=== PATIENT | female | born 1940 | race Caucasian/White ===

== ENCOUNTER → 2016-11-16 | Outpatient (CLI) | payer OTHER ==
[2015-06-26 20:40] VITALS: BP 147/115
[~2016-11-16] MED LIST: HYDR25TA9 PO; INSU100V13 SQ; LEVO100T5 PO; LISI40TA PO; MAGN400T22 PO; METF10002 PO; METO25TA4 PO; OMEP20CA9 PO; SIMV20TA3 PO; TRAM50TA PO; VERA240C4 PO
--- NOTE | 2016-11-16 13:00 | RAD ---
DATE: 11/16/2016 EXAM: DIGITAL SCREEN BILAT W/CAD HISTORY: Routine screening COMPARISON: 10/10/2015 This study was interpreted with the benefit of Computerized Aided Detection (CAD). The breast parenchyma is primarily fatty replaced. Breast parenchyma level density A. FINDINGS: No new or enlarging breast densities are seen. Benign type calcifications are present. No suspicious microcalcifications have developed. IMPRESSION: Stable mammograms without evidence of malignancy. BI-RADS CATEGORY: 2 BENIGN FINDING(S) RECOMMENDED FOLLOW-UP: 12M 12 MONTH FOLLOW-UP PQRS compliance statement: Patient information was entered into a reminder system with a target due date for the next mammogram. Mammography is a sensitive method for finding small breast cancers, but it does not detect them all and is not a substitute for careful clinical examination. A negative mammogram does not negate a clinically suspicious finding and should not result in delay in biopsying a clinically suspicious abnormality. "Our facility is accredited by the [employer] Mammography Program."
== END | disposition home or self-care (01) ==
LOC: MAMMO 11:02
PROVIDERS: ATTEND Nurse Practitioner Family
DX: Z12.31 Encounter for screening mammogram for malignant neoplasm of breast (principal)
CPT/HCPCS: G0202; 77067

== ENCOUNTER → 2016-11-20 | Outpatient (CLI) | payer OTHER ==
[2015-06-26 20:40] VITALS: BP 147/115
[2016-11-20 11:47] LABS: HEMATOCRIT 40.1 % (36.0-47.0); HEMOGLOBIN 13.1 g/dL (12.0-15.5)
[2016-11-20 11:53] LABS: ALBUMIN 3.6 g/dL (3.4-5.0); CREATININE 1.2 mg/dL (0.6-1.0); GFR 43.8; MAGNESIUM 1.7 mg/dL (1.8-2.4); POTASSIUM 4.6 mmol/L (3.5-5.1)
[2016-11-20 11:59] LABS: BILIRUBIN,URINE NEG (NEG); CLARITY,URINE CLEAR; COLOR,URINE YELLOW; GLUCOSE,URINE NEG (NEG); NITRITE,URINE NEG (NEG); RBC,URINE 0 /HPF (0-2); UROBILINOGEN,URINE 1 mg/dL (0.2 mg/dL)
[2016-11-20 12:00] LABS: AMORPHOUS SEDIMENT,UR PRESENT /HPF; BACTERIA,URINE FEW /HPF (0-FEW); SQUAMOUS EPITHELIAL CELL,UR OCC /LPF
--- NOTE | 2016-11-20 14:53 | RAD ---
Renal ultrasound, 11/20/2016: History: Chronic kidney disease The right kidney measures 9.4 cm in length, while the left kidney measures 10 cm. There is no evidence of hydronephrosis or a renal mass. There is minimal bilateral renal cortical scarring. The renal parenchymal echogenicity is within normal limits. Limited views of urinary bladder show no abnormality. IMPRESSION: 1. Minimal bilateral renal cortical scarring. 2. The kidneys are otherwise unremarkable.
[2016-11-20 17:08] LABS: CALCIUM PTH 9.3 mg/dL (8.7-10.3); CREATININE PTH 1.04 mg/dL (0.57-1.00); MICRO CREAT RATIO <17.6 mg/g creat (0.0-30.0); MICROALB RD UR <12.0 ug/mL (Not Estab.); PTH INTACT 42 pg/mL (15-65); TOTAL PROTEIN CREATININE RATIO 167 mg/g creat (0-200); UR PROTEIN RD 11.4 mg/dL (Not Estab.)
== END | disposition home or self-care (01) ==
LOC: US 10:38
PROVIDERS: ATTEND Internal Medicine Nephrology
DX: I12.9 Hypertensive chronic kidney disease with stage 1 through stage 4 chronic kidney disease, or unspecified chronic kidney disease (principal); N18.3 Chronic kidney disease, stage 3 (moderate); E11.22 Type 2 diabetes mellitus with diabetic chronic kidney disease; N11.9 Chronic tubulo-interstitial nephritis, unspecified; I70.1 Atherosclerosis of renal artery; D50.9 Iron deficiency anemia, unspecified; M17.9 Osteoarthritis of knee, unspecified; Z68.32 Body mass index [BMI] 32.0-32.9, adult
CPT/HCPCS: 36415; 76770; 80069; 81001; 82043; 82570; 83735; 83970; 84156; 85014; 85018

== ENCOUNTER → 2017-04-16 | Outpatient (CLI) | payer OTHER ==
[2015-06-26 20:40] VITALS: BP 147/115
--- NOTE | 2017-04-16 14:10 | RAD ---
Three-view lumbar spine series Clinical indications: Low back pain radiating down the right leg. Comparison: CT study of the abdomen and pelvis dated June 26, 2015. Findings: The transverse processes are intact. No compression fracture or discitis or osteolytic process is seen. Grade 1 anterolisthesis of L4-5 is unchanged. This is secondary to degenerative facet arthropathy at this level. There is severe degenerative disc space narrowing and moderate degenerative endplate spurring at L5-S1 which is unchanged as well. Degenerative disc space narrowing is seen at L1-2 and L2-3 which is unchanged. IMPRESSION: Stable lumbar spine study. Stable grade 1 anterolisthesis of L4-5. Degenerative lumbar spondylosis.
== END | disposition home or self-care (01) ==
LOC: PMG 12:42
PROVIDERS: ATTEND Nurse Practitioner Family
DX: M47.896 Other spondylosis, lumbar region (principal); M46.06 Spinal enthesopathy, lumbar region
CPT/HCPCS: 72100

== ENCOUNTER → 2017-06-04 | Outpatient (CLI) | payer OTHER ==
[2015-06-26 20:40] VITALS: BP 147/115
[2017-06-04 13:23] LABS: HEMATOCRIT 41.8 % (36.0-47.0); HEMOGLOBIN 13.6 g/dL (12.0-15.5)
[2017-06-04 13:34] LABS: ALBUMIN 3.5 g/dL (3.4-5.0); CALCIUM 9.2 mg/dL (8.5-10.1); CREATININE 1.2 mg/dL (0.6-1.0); GFR 43.7; MAGNESIUM 1.8 mg/dL (1.8-2.4); PHOSPHORUS 3.6 mg/dL (2.6-4.7); POTASSIUM 4.4 mmol/L (3.5-5.1)
[2017-06-04 13:42] LABS: BACTERIA,URINE 0 /HPF (0-FEW); BILIRUBIN,URINE NEG (NEG); CLARITY,URINE CLEAR; COLOR,URINE YELLOW; GLUCOSE,URINE NEG (NEG); HYALINE CASTS, URINE OCC /HPF; NITRITE,URINE NEG (NEG); RBC,URINE RARE /HPF (0-2); SQUAMOUS EPITHELIAL CELL,UR OCC /LPF; UROBILINOGEN,URINE 0.2 mg/dL (0.2 mg/dL); WBC,URINE RARE /HPF (0-4)
[2017-06-05 04:09] LABS: MICROALB RD UR 27.7 ug/mL (Not Estab.)
== END | disposition home or self-care (01) ==
LOC: LAB 12:36
PROVIDERS: ATTEND Family Medicine
DX: I12.9 Hypertensive chronic kidney disease with stage 1 through stage 4 chronic kidney disease, or unspecified chronic kidney disease (principal); E11.22 Type 2 diabetes mellitus with diabetic chronic kidney disease; N18.3 Chronic kidney disease, stage 3 (moderate); M17.9 Osteoarthritis of knee, unspecified; I70.1 Atherosclerosis of renal artery; N11.9 Chronic tubulo-interstitial nephritis, unspecified; Z68.33 Body mass index [BMI] 33.0-33.9, adult
CPT/HCPCS: 36415; 80069; 81001; 82043; 82570; 83735; 85014; 85018

== ENCOUNTER → 2017-07-15 | Outpatient (CLI) | payer OTHER ==
[2015-06-26 20:40] VITALS: BP 147/115
[2017-07-15 13:13] LABS: ALBUMIN 3.6 g/dL (3.4-5.0); CALCIUM 9.4 mg/dL (8.5-10.1); CREATININE 1.2 mg/dL (0.6-1.0); GFR 43.7; HEMOGLOBIN 13.4 g/dL (12.0-15.5); MAGNESIUM 1.7 mg/dL (1.8-2.4); POTASSIUM 4.3 mmol/L (3.5-5.1)
[2017-07-15 13:15] LABS: BACTERIA,URINE FEW /HPF (0-FEW); BILIRUBIN,URINE NEG (NEG); CLARITY,URINE HAZY; COLOR,URINE YELLOW; GLUCOSE,URINE 100 mg/dL (NEG); NITRITE,URINE NEG (NEG); RBC,URINE 0 /HPF (0-2); SQUAMOUS EPITHELIAL CELL,UR OCC /LPF; UROBILINOGEN,URINE 1 mg/dL (0.2 mg/dL); WBC,URINE OCC /HPF (0-4)
[2017-07-16 04:07] LABS: MICRO CREAT RATIO <11.0 mg/g creat (0.0-30.0); MICROALB RD UR <12.0 ug/mL (Not Estab.)
== END | disposition home or self-care (01) ==
LOC: LAB 11:14
PROVIDERS: ATTEND Internal Medicine Nephrology
DX: I12.9 Hypertensive chronic kidney disease with stage 1 through stage 4 chronic kidney disease, or unspecified chronic kidney disease (principal); E11.22 Type 2 diabetes mellitus with diabetic chronic kidney disease; N18.3 Chronic kidney disease, stage 3 (moderate); I70.1 Atherosclerosis of renal artery; N11.9 Chronic tubulo-interstitial nephritis, unspecified; M17.9 Osteoarthritis of knee, unspecified; Z68.33 Body mass index [BMI] 33.0-33.9, adult
CPT/HCPCS: 36415; 80069; 81001; 82043; 82570; 83735; 85014; 85018

== ENCOUNTER → 2017-07-25 | Outpatient (CLI) | payer OTHER ==
[2015-06-26 20:40] VITALS: BP 147/115
--- NOTE | 2017-07-25 17:12 | RAD ---
Lumbar spine, 3 views, 07/25/2017: History: Low back pain, injury Comparison is made to a study from 04/16/2017. The lumbar vertebral heights are well-maintained. There is considerable disc space narrowing and marginal spurring at L5-S1. There is also moderate multilevel degenerative change in the lower thoracic spine. There are moderate degenerative changes involving the facet joints, particularly in the lower lumbar spine. A mild associated anterolisthesis at L4-5 is unchanged. No acute fracture or new subluxation is evident. Moderate arthritic changes are present at both sacroiliac joints. Aortic calcific plaquing is noted. IMPRESSION: 1. Moderate multilevel degenerative change. 2. Unchanged mild anterolisthesis at L4-5 due to facet joint arthropathy. 3. No new bony abnormality is detected.
== END | disposition home or self-care (01) ==
LOC: DXRAD 14:38
PROVIDERS: ATTEND Nurse Practitioner Family
DX: M47.896 Other spondylosis, lumbar region (principal); M43.16 Spondylolisthesis, lumbar region
CPT/HCPCS: 72100

== ENCOUNTER → 2017-10-09 | Outpatient (CLI) | payer OTHER ==
[2015-06-26 20:40] VITALS: BP 147/115
[~2017-10-09] MED LIST changes: -METF10002 PO; +METF10003 PO
--- NOTE | 2017-10-09 11:06 | RAD ---
Lumbar spine with lateral flexion and extension views, 4 views, 10/09/2017: HISTORY: Back pain Comparison is made to a study from 07/25/2017. The lumbar vertebral heights are well-maintained. There is severe disc space narrowing with endplate sclerosis and marginal spurring at L5-S1. There is also moderate degenerative disc disease at multiple levels in the lower thoracic spine including T12-L1. There are moderate degenerative changes involving the facet joints in the lower lumbar spine with a mild associated spondylolisthesis at L4-5. This anterolisthesis does not demonstrate significant instability with attempted flexion and extension maneuvers. No new spinal abnormality is detected. There are moderate sclerotic changes at both sacroiliac joints. IMPRESSION: 1. Moderate multilevel degenerative change. 2. Severe degenerative disc disease at L5-S1. 3. Unchanged mild anterolisthesis at L4-5. Electronically signed by: Taqueria Guzmán MD (10/09/2017 11:00 AM) [facility]
== END | disposition home or self-care (01) ==
LOC: DXRAD 09:42
PROVIDERS: ATTEND Neurological Surgery
DX: M51.37 Other intervertebral disc degeneration, lumbosacral region (principal); M43.16 Spondylolisthesis, lumbar region; M48.07 Spinal stenosis, lumbosacral region; I12.9 Hypertensive chronic kidney disease with stage 1 through stage 4 chronic kidney disease, or unspecified chronic kidney disease; E11.22 Type 2 diabetes mellitus with diabetic chronic kidney disease; N18.3 Chronic kidney disease, stage 3 (moderate)
CPT/HCPCS: 72110

== ENCOUNTER → 2017-11-29 | Outpatient (CLI) | payer OTHER ==
[2015-06-26 20:40] VITALS: BP 147/115
[~2017-11-29] MED LIST changes: +0.9 % SODIUM CHLORIDE 10 ML VIAL ONE; +IOHEXOL 300 MG/ML 50 ML VIAL. ONE; +LIDOCAINE 1% PF 30 ML VIAL. ONE; +methylPREDNISolone ACETATE 80 MG/ML VIAL. ONE
== END | disposition home or self-care (01) ==
LOC: SURG 11:48
PROVIDERS: ATTEND Anesthesiology Pain Medicine
DX: M54.16 Radiculopathy, lumbar region (principal); K21.9 Gastro-esophageal reflux disease without esophagitis; I12.9 Hypertensive chronic kidney disease with stage 1 through stage 4 chronic kidney disease, or unspecified chronic kidney disease; E11.22 Type 2 diabetes mellitus with diabetic chronic kidney disease; N18.3 Chronic kidney disease, stage 3 (moderate); M19.90 Unspecified osteoarthritis, unspecified site; Z96.653 Presence of artificial knee joint, bilateral; Z79.82 Long term (current) use of aspirin; Z79.899 Other long term (current) drug therapy; Z79.4 Long term (current) use of insulin
CPT/HCPCS: 62323; 82947; J1040; J2001; Q9967

== ENCOUNTER → 2018-02-14 | Outpatient (CLI) | payer OTHER ==
[2015-06-26 20:40] VITALS: BP 147/115
[~2018-02-14] MED LIST changes: -0.9 % SODIUM CHLORIDE 10 ML VIAL ONE; +BUPIVACAINE MPF 0.25% 30 ML VIAL. ONE; +DEXAMETHASONE SOD PHOS 4 MG/ML VIAL ONE; -METF10003 PO; +METF10007 PO; -methylPREDNISolone ACETATE 80 MG/ML VIAL. ONE
== END | disposition home or self-care (01) ==
LOC: SURG 11:37
PROVIDERS: ATTEND Anesthesiology Pain Medicine
DX: M47.26 Other spondylosis with radiculopathy, lumbar region (principal); I10 Essential (primary) hypertension; E11.9 Type 2 diabetes mellitus without complications; K21.9 Gastro-esophageal reflux disease without esophagitis; M19.90 Unspecified osteoarthritis, unspecified site; Z96.653 Presence of artificial knee joint, bilateral; Z79.82 Long term (current) use of aspirin; Z79.899 Other long term (current) drug therapy; G89.4 Chronic pain syndrome; Z79.84 Long term (current) use of oral hypoglycemic drugs
CPT/HCPCS: 64483; 64484; 82947; J1100; J2001; J3490; Q9967

== ENCOUNTER → 2018-11-13 | Outpatient (CLI) | payer OTHER ==
[2015-06-26 20:40] VITALS: BP 147/115
[~2018-11-13] MED LIST changes: -BUPIVACAINE MPF 0.25% 30 ML VIAL. ONE; -DEXAMETHASONE SOD PHOS 4 MG/ML VIAL ONE; +HYDR-2145 PO; -HYDR25TA9 PO; -IOHEXOL 300 MG/ML 50 ML VIAL. ONE; -LIDOCAINE 1% PF 30 ML VIAL. ONE; +OMEP20CA10 PO; -OMEP20CA9 PO
--- NOTE | 2018-11-14 10:33 | RAD ---
EXAM: AP, lateral and oblique views of both knees DATE: 11/13/2018 12:00 AM INDICATION: Bilateral knee pain, knee arthroplasties COMPARISON: 05/24/2016 FINDINGS: Right: Right total knee arthroplasty is stable in alignment, without interval hardware complication. Components are well seated without significant periprosthetic lucency. No significant knee joint effusion. No evidence of acute fracture or dislocation. Patellar enthesopathy. Left knee: Left total knee arthroplasty is stable in alignment, without interval hardware complication. Components are well seated without significant periprosthetic lucency. No knee joint effusion. No evidence of acute fracture or dislocation. Patellar enthesopathy. IMPRESSION: 1. Bilateral total knee arthroplasty, grossly stable in alignment without interval hardware complication. 2. No evidence of acute fracture or dislocation. Electronically signed by: Saw Duque MD (11/14/2018 10:30 AM) [facility] [place]
== END | disposition home or self-care (01) ==
LOC: PMG 12:08
PROVIDERS: ATTEND Family Medicine
DX: M76.892 Other specified enthesopathies of left lower limb, excluding foot (principal); M76.891 Other specified enthesopathies of right lower limb, excluding foot; M17.0 Bilateral primary osteoarthritis of knee
CPT/HCPCS: 73562

== ENCOUNTER 2021-09-15 23:50 | Emergency (ER) | payer MEDICARE, OTHER ==
[~2021-09-15] VITALS: Ht 162.6 cm; Wt 79.6 kg
[~2021-09-15 23:50] MED LIST changes: -LISI40TA PO; +LISI40TA6 PO; -OMEP20CA10 PO; +OMEP20CA16 PO; +SIMV20TA18 PO; -SIMV20TA3 PO
--- NOTE | 2021-09-16 00:25 | PHYS DOC ---
Past History Past Medical History: Arrhythmia, Diabetes, Hypertension Past Surgical History: Cholecystectomy, Knee Replacement, Other Smoking: Non-smoker Alcohol Use: None Drug Use: None Adult General Chief Complaint Chief Complaint: FATIGUE HPI HPI Patient is a 80-year-old female with a past medical history of diabetes and hypertension who presents with daughter with a chief complaint of 3 to 4 days of generalized fatigue and overall weakness. Denies any recent traumas, travels, illness, fevers, chest pain, shortness of breath, abdominal pain, nausea, vomiting, diarrhea. Denies any rash or known ill contacts. Review of Systems Review of Systems Review of systems otherwise unremarkable except noted in HPI Allergies Allergies Allergies Coded Allergies Type Severity Reaction Last Updated Verified No Known Drug Allergies 08/24/14 No Physical Exam Physical Exam Constitutional: Well developed, well nourished, no acute distress, non-toxic appearance. [] HENT: Normocephalic, atraumatic, bilateral external ears normal, oropharynx moist, no oral exudates, nose normal. [] Eyes: PERRLA, EOMI, conjunctiva normal, no discharge. [] Neck: Normal range of motion, no tenderness, supple, no stridor. [] Cardiovascular:Heart rate regular rhythm, no murmur [] Lungs & Thorax: Bilateral breath sounds clear to auscultation [] Abdomen: Bowel sounds normal, soft, no tenderness, no masses, no pulsatile masses. [] Skin: Warm, dry, no erythema, no rash. [] Back: No tenderness, no CVA tenderness. [] Extremities: No tenderness, no cyanosis, no clubbing, ROM intact, no edema. [] Neurologic: Alert and oriented X 3, normal motor function, normal sensory function, no focal deficits noted. [] Psychologic: Affect normal, judgement normal, mood normal. [] Current Patient Data Vital Signs Vital Signs Date Time Temp Pulse Resp B/P (MAP) Pulse Ox O2 Delivery O2 Flow Rate FiO2 09/16/21 00:04 98.4 148/61 (90) Room Air EKG EKG [] Radiology/Procedures Radiology/Procedures [] Heart Score C/O Chest Pain: No Risk Factors: Risk Factors: DM, Current or recent (<one month) smoker, HTN, HLP, family history of CAD, obesity. Risk Scores: Risk Factors: DM, Current or recent (<one month) smoker, HTN, HLP, family history of CAD, obesity. Course & Med Decision Making Course & Med Decision Making Patient is an 80-year-old female who presents with a chief complaint of fatigue and weakness over the last 3 to 4 days Vital signs nonconcerning. Physical exam noted above. EKG with normal rate, normal rhythm, no STEMI. Troponin normal. CT head normal. Chest x-ray normal. Laboratory analysis notable for mild hypomagnesemia which was replaced. Elevated creatinine to 1.5 however patient's baseline is 1.2. Offered admission to the hospital for increasing creatinine and fluid management as well as some magnesium. Patient stated that she did not want to stay in the hospital for these things and could drink some fluids and take vitamins and magnesium at home Gave strict return precautions to the ED. Family grateful, verbalized understanding and agreed with plan of discharge. [] Dragon Disclaimer Dragon Disclaimer This electronic medical record was generated, in whole or in part, using a voice recognition dictation system. Departure Departure: Impression: Primary Impression: Elevated serum creatinine Additional Impression: Hypomagnesemia Disposition: 01 HOME / SELF CARE / HOMELESS Condition: STABLE Referrals: MP LITTLE MD (PCP) Patient Instructions: Creatine Kinase (CK), Hypomagnesemia Additional Instructions: Thank you for coming into the emergency department tonight and allowing us to take care of you. Please read the attached information carefully to go over things we discussed. Today your magnesium was a little low and it was replaced in your kidney function lab, creatinine was slightly elevated over your baseline of 1.2-1.5. We discussed admission but you stated that she did not want to be admitted to the hospital. Please take all of your medications and vitamins that you are taking now as prescribed. Please replace your magnesium over the next few days as we discussed. Please be sure to drink plenty of fluids to maintain clear urine output as we discussed. Please call your primary care physician as soon as you can to set up a follow-up appointment for next week for reevaluation to discuss further treatment if needed. Please come back with new or concerning symptoms as discussed. Problem Qualifiers CAL ANDERSON MD September 16, 2021 00:25
[2021-09-16] MEDS: IV RINGERS SOLUTION,LACTATED 1,000 ML IV ONE (00:30)
[2021-09-16 01:10] LABS: BASO # 0.1 x10^3/uL (0.0-0.2); BASO % 1 % (0-3); EOS # 0.1 x10^3/uL (0.0-0.7); EOS % 2 % (0-3); HEMATOCRIT 35.3 % (36.0-47.0); HEMOGLOBIN 11.3 g/dL (12.0-15.5); LYMPH # 2.5 x10^3/uL (1.0-4.8); LYMPH % 34 % (24-48); MEAN CORPUSCULAR HEMOGLOBIN 30 pg (25-35); MEAN CORPUSCULAR HGB CONC 32 g/dL (31-37); MEAN CORPUSCULAR VOLUME 93 fL (79-100); MONO # 0.7 x10^3/uL (0.0-1.1); MONO % 10 % (0-9); NEUT % 53 % (31-73); PLATELET COUNT 321 x10^3/uL (140-400); RED CELL DISTRIBUTION WIDTH 16.1 % (11.5-14.5); WHITE BLOOD COUNT 7.5 x10^3/uL (4.0-11.0)
[2021-09-16 01:20] LABS: ANION GAP 11 (6-14); BLOOD UREA NITROGEN 37 mg/dL (7-20); BUN/CREATININE RATIO 25 (6-20); CALCIUM 9.1 mg/dL (8.5-10.1); CARBON DIOXIDE 21 mmol/L (21-32); CHLORIDE 106 mmol/L (98-107); CREATININE 1.5 mg/dL (0.6-1.0); GFR 33.4; GLUCOSE 213 mg/dL (70-99); POTASSIUM 4.5 mmol/L (3.5-5.1); SODIUM 138 mmol/L (136-145)
--- NOTE | 2021-09-16 01:23 | RAD ---
CT Head W/O Contrast: History: Reason: weakness / Spl. Instructions: / History: Comparison: none Axial images were obtained without contrast. There is mild to moderate diffuse atrophy. There is no mass effect, extraaxial fluid collections or hydrocephalus. There is no focal loss of corey-white matter distinction to suggest acute ischemia, i.e. stroke. Impression: No acute findings. RS Compliance Statement: One or more of the following individualized dose reduction techniques were utilized for this examinat ion: 1. Automated exposure control 2. Adjustment of the mA and/or kV according to patient size 3. Use of iterative reconstruction technique Electronically signed by: Elder Christy III, MD (09/16/2021 1:21 AM) [facility]
[2021-09-16 01:25] LABS: ALBUMIN 3.5 g/dL (3.4-5.0); ALBUMIN/GLOBULIN RATIO 1.1 (1.0-1.7); ALK PHOS 45 U/L (46-116); ALT (SGPT) 17 U/L (14-59); AST (SGOT) 10 U/L (15-37); MAGNESIUM 1.6 mg/dL (1.8-2.4); TOTAL PROTEIN 6.7 g/dL (6.4-8.2)
[2021-09-16 01:28] LABS: TOTAL BILIRUBIN < 0.1 mg/dL (0.2-1.0)
--- NOTE | 2021-09-16 01:52 | RAD ---
XR CHEST 1V Clinical History: Reason: w/u / Spl. Instructions: / History: Technique: AP view of the chest was obtained at 09/16/2021 12:29 AM. Comparison: None. Findings: The cardiomediastinal silhouette is normal. The pulmonary vasculature is normal. There is a moderate hiatal hernia. Impression: No evidence of an acute cardiopulmonary process. Electronically signed by: Elder Christy III, MD (09/16/2021 1:50 AM) [facility]
[2021-09-16 02:02] VITALS: BP 130/67
[2021-09-16 02:05] LABS: BACTERIA,URINE 0 /HPF (0-FEW); CLARITY,URINE CLEAR; COLOR,URINE YELLOW; GLUCOSE,URINE NEG (NEG); NITRITE,URINE NEG (NEG); RBC,URINE 0 /HPF (0-2); SQUAMOUS EPITHELIAL CELL,UR OCC /LPF; UROBILINOGEN,URINE 0.2 mg/dL (0.2 mg/dL)
[2021-09-16] MEDS ORDERED: IBUPROFEN 800 MG TABLET. PO ONE (02:05)
[2021-09-16] MEDS ORDERED: ACETAMINOPHEN 500 MG TABLET PO ONE (02:05)
[2021-09-16] MEDS: MAGNESIUM OXIDE 400 MG TABLET PO ONE (02:30)
== END 2021-09-16 02:39 | disposition home or self-care (01) ==
LOC: ER 23:50
DX: E83.42 Hypomagnesemia (principal); R79.89 Other specified abnormal findings of blood chemistry; E11.9 Type 2 diabetes mellitus without complications; I10 Essential (primary) hypertension
CPT/HCPCS: 36415; 70450; 71045; 80053; 81001; 83735; 84484; 85025; 87086; 93005; 96360; 99285; J7120